=== PATIENT | female | born 1950 | race Caucasian/White ===

== ENCOUNTER 2023-05-16 08:06 | Outpatient (CLI) | payer MEDICARE, SELFPAY ==
--- NOTE | 2023-05-16 10:07 | W.ANESCHARGE ---
Anesthesia Charges Start Date/Time Anesthesia Start Date: 05/16/23 Anesthesia Start Time: 09:48 Stop Date/Time Anesthesia Stop Date: 05/16/23 Anesthesia Stop Time: 10:14 Summary Extremes of Age - Over 70 or under 1: MDA
--- NOTE | 2023-05-16 10:18 | W.ANESCHARGE ---
Anesthesia Charges Start Date/Time Anesthesia Start Date: 05/16/23 Anesthesia Start Time: 09:48 Stop Date/Time Anesthesia Stop Date: 05/16/23 Anesthesia Stop Time: 10:14
== END 2023-05-16 08:07 | disposition home or self-care (01) ==
LOC: OP CLINIC 08:15
PROVIDERS: Visit Provider Internal Medicine Gastroenterology
DX: Z12.11 Encounter for screening for malignant neoplasm of colon (principal); K63.5 Polyp of colon; K57.30 Diverticulosis of large intestine without perforation or abscess without bleeding; Z86.010 Personal history of colon polyps
CPT/HCPCS: 45385; 811; 88305; 99100; J2704